=== PATIENT | female | born 1935 | race Caucasian/White ===

== ENCOUNTER 2022-07-20 19:36 | Emergency (ER) | payer OTHER ==
[~2022-07-20] VITALS: Ht 162.6 cm; Wt 56.7 kg
--- NOTE | 2022-07-20 19:36 | NUR ---
Dr. Mae at bedside. MSE in progress.
[2022-07-20] MEDS ORDERED: IBUPROFEN 400 MG TABLET PO ONE (19:45)
[2022-07-20] MEDS ORDERED: HYDROCODONE/APAP 5-325MG TABLET PO ONE (19:45)
[2022-07-20] MEDS ORDERED: ONDANSETRON ODT 4 MG TAB.RAPDIS SL ONE (19:45)
[2022-07-20] MEDS ORDERED: ONDANSETRON ODT 4 MG TAB.RAPDIS ONE (19:51)
[2022-07-20] MEDS ORDERED: HYDROCODONE/APAP 5-325MG TABLET ONE (19:51)
[2022-07-20] MEDS ORDERED: IBUPROFEN 400 MG TABLET ONE (19:51)
--- NOTE | 2022-07-20 19:58 | NUR ---
X-ray at bedside.
[2022-07-20 20:40] LABS: HEMATOCRIT 35.8 % (31.2-41.9); MEAN CORPUSCULAR VOLUME 118.6 fL (75.5-95.3); PLATELET COUNT (AUTO) 302 K/uL (179-408)
[2022-07-20] MEDS ORDERED: HYDR500C2 PO (20:49)
[2022-07-20] MEDS ORDERED: SERT20OR6 PO (20:49)
[2022-07-20] MEDS ORDERED: OMEP20CA15 PO (20:49)
[2022-07-20] MEDS ORDERED: ASPI81TA31 PO (20:49)
--- NOTE | 2022-07-20 20:49 | NUR ---
Pt states can't remember names and dosages of her medications, can't remember BP medication name. Needs further follow up.
[2022-07-20 21:13] LABS: CREATININE 1.2 mg/dL (0.6-1.3); POTASSIUM 4.5 mmol/L (3.5-5.1)
--- NOTE | 2022-07-20 21:13 | NUR ---
Dr. Priest paged for Doctor to Doctor call with Dr. Mae.
[2022-07-20] MEDS ORDERED: MORPHINE SULFATE 4 MG/1 ML DISP.SYRIN IV ONE (21:15)
[2022-07-20] MEDS ORDERED: MORPHINE SULFATE 4 MG/1 ML DISP.SYRIN ONE (21:16)
--- NOTE | 2022-07-20 22:25 | NUR ---
called [facility] for panel call. awaiting for Shaista ROASRIO hospitalist on-call to call back
--- NOTE | 2022-07-20 22:55 | NUR ---
Per auto parts clerkTerrie, we are still waitig on authorization from insurance.
--- NOTE | 2022-07-20 23:17 | NUR ---
Dr. Mae regulatory affairs consultant with Dr. Priest.
[2022-07-20] MEDS ORDERED: MORPHINE SULFATE 2 MG/1 ML DISP.SYRIN IV PRN (23:45)
[2022-07-20] MEDS ORDERED: ACETAMINOPHEN 325 MG TABLET PO PRN (23:45)
[2022-07-20] MEDS ORDERED: ONDANSETRON 4 MG/2 ML VIAL IV PRN (23:45)
[2022-07-20] MEDS ORDERED: MAGNESIUM HYDROXIDE 30 ML LIQUID UDC PO PRN (23:45)
[2022-07-20] MEDS ORDERED: IV NS 1000 ML 1,000 ML IV PRN (23:45)
[2022-07-20] MEDS ORDERED: REMEDY ESSENTIAL ZINC PASTE 113 GM TP PRN (23:45)
[2022-07-20] MEDS ORDERED: HYDROCODONE/APAP 5-325MG TABLET PO PRN (23:45)
--- NOTE | 2022-07-20 23:53 | NUR ---
Spoke to Sheri from [facility], relayed v/s. She stated that she will page Dr. Angel for the doctor to doctor call.
--- NOTE | 2022-07-21 00:21 | NUR ---
Per Ratna, sales record clerk, Dr. Sanchez from [facility] was paged to do a doctor to doctor call with Dr. Mae.
--- NOTE | 2022-07-21 01:10 | NUR ---
Dr. Mae speaking with Dr. Rangel of [facility].
[2022-07-21] MEDS ORDERED: HYDROXYUREA 500 MG CAPSULE PO STA (01:37)
--- NOTE | 2022-07-21 01:45 | NUR ---
Unable to give patient Hydrea 500 mg capsule. Called supervisor assembly and he stated that the the medication is not avaliable in the hospital.
--- NOTE | 2022-07-21 01:47 | NUR ---
Dr. Mae aware that Hydrea medication is not avaliable.
--- NOTE | 2022-07-21 02:13 | NUR ---
Davis morris in ED - 07/21/22 at 0215 by FARHAT Patient will be transfered to [facility] under Dr Uriel jacques for report [phone] [facility] ambulance ETA 10-15 mins
--- NOTE | 2022-07-21 02:15 | NUR ---
Patient will be transfered to [facility] room [address] Trevino call for report [phone] [facility] ambulance ETA 10-15 mins
[2022-07-21] MEDS ORDERED: MORPHINE SULFATE 4 MG/1 ML DISP.SYRIN IV ONE (02:30)
--- NOTE | 2022-07-21 02:34 | NUR ---
Report given to ADRIAN Cody from [facility].
[2022-07-21] MEDS ORDERED: MORPHINE SULFATE 4 MG/1 ML DISP.SYRIN ONE (02:49)
--- NOTE | 2022-07-21 03:21 | NUR ---
Received a call from Balbir ([facility]), updated v/s given.
--- NOTE | 2022-07-21 03:50 | NUR ---
[facility] ambulance has arrived and report given.
--- NOTE | 2022-07-21 04:18 | NUR ---
[facility] has left with patient. Verfied with [facility] that they can leave w/o the doctor consult with the Orthopedic Department.
[2022-07-21] MEDS ORDERED: PANTOPRAZOLE SODIUM 40 MG VIAL IV SCH (09:00)
== END 2022-07-21 04:22 | disposition short-term general hospital (02) ==
LOC: ER 19:39
DX: S72.091A Other fracture of head and neck of right femur, initial encounter for closed fracture (principal); R07.89 Other chest pain; Z79.82 Long term (current) use of aspirin; Z79.899 Other long term (current) drug therapy; Z20.822 Contact with and (suspected) exposure to COVID-19; W01.0XXA Fall on same level from slipping, tripping and stumbling without subsequent striking against object, initial encounter; Y93.89 Activity, other specified; Y92.89 Other specified places as the place of occurrence of the external cause; Y99.8 Other external cause status
CPT/HCPCS: 99285; 96374; 71045; 80048; 85025; 85610; 86850; 86900; 86901; 36415; 93005; 73502; 73551; 73564; 87426; 96376; J2270 ×2; A4663; Q0162